=== PATIENT | female | born 1965 | race Caucasian/White ===

== ENCOUNTER 2016-10-26 16:29 | Emergency (ER) | payer MEDICARE ==
[2016-10-26 17:25] LABS: Basophils % (Auto) 0.9 % (0.0-1.8); Eosinophils % (Auto) 2.3 % (0.0-4.3); Hematocrit 42.9 % (30.3-42.9); Hemoglobin 13.6 gm/dl (10.1-14.3); Mean Corpuscular HGB Conc 32 % (30-34); Mean Corpuscular Hemoglobin 29 pg (28-32); Mean Corpuscular Volume 91 fl (79-97); Red Blood Count 4.73 M/mm3 (3.65-5.03); Red Cell Distribution Width 14.2 % (13.2-15.2); White Blood Count 5.7 K/mm3 (4.5-11.0)
[2016-10-26 17:27] LABS: Platelet Count 130 K/mm3 (140-440)
[2016-10-26 17:32] LABS: Anion Gap 17 mmol/L; Blood Urea Nitrogen 6 mg/dL (7-17); Calcium 9.7 mg/dL (8.4-10.2); Carbon Dioxide 26 mmol/L (22-30); Chloride 103.7 mmol/L (98-107); Glucose 88 mg/dL (65-100); Potassium 4.1 mmol/L (3.6-5.0); Sodium 143 mmol/L (137-145)
--- NOTE | 2016-10-26 18:57 | Emergency Department Report ---
ED Psych HPI - General Chief Complaint: Psych Stated Complaint: EVALUATION Time Seen by Provider: 10/26/16 17:33 Source: patient Mode of arrival: Ambulatory Limitations: No Limitations - History of Present Illness Initial Comments: 51-year-old female with a past smoker history of bipolar, GERD, migraines, and hypertension presents to the hospital complains of suicidal thoughts on and off for quite some time. Symptoms exacerbated after argument with her . Patient does hear voices on occasion from her ex- who committed suicide. Patient's last suicide attempt with as a teenager via overdose. Plan is to overdose this time as well. Patient expressed these thoughts to her primary care doctor provider Valeria ROLDAN at [facility]. Patient was sent here via police escort on a 1013. As per patient awake patient expressed to the provider that she was on a harm herself and her . Patient has been noncompliant with his psychiatric medication for 3 weeks. She takes something for anxiety, something for depression, can only recall that Seroquel is one of the medications. Patient takes lisinopril 40 mg for her blood pressure. No physical complaints reported. - Related Data Home Medications Medication Instructions Recorded Confirmed Last Taken Aspirin [Aspirin BABY CHEW TAB] 81 mg PO QDAY 10/14/12 10/14/12 10/13/12 Celecoxib [celeBREX] 200 mg PO PRN PRN 10/14/12 10/14/12 Unknown Ibuprofen [Motrin 800 MG tab] 800 mg PO 10/14/12 10/14/12 10/13/12 Lisinopril 20 mg PO 10/14/12 10/14/12 10/13/12 Nitroglycerin [Nitrostat] 0.4 mg SL PRN PRN 10/14/12 10/14/12 10/12/12 Omeprazole [Prilosec] 40 mg PO PRN PRN 10/14/12 10/14/12 Unknown Pantoprazole [Protonix INJ] 40 mg IV QDAY 10/14/12 10/14/12 10/13/12 Propranolol LA [Inderal LA] 60 mg PO PRN 10/14/12 10/14/12 Unknown Sumatriptan Succ/Naproxen Sod 85 - 500 mg PO PRN 10/14/12 10/14/12 Unknown [Treximet 85-500 mg Tablet] Vilazodone Hydrochloride [Viibryd] 40 mg PO QDAY 10/14/12 10/14/12 10/13/12 lamoTRIgine [LaMICtal] 200 mg PO PRN PRN 10/14/12 10/14/12 Unknown Allergies Allergy/AdvReac Type Severity Reaction Status Date / Time No Known Allergies Allergy Verified 10/26/16 16:51 ED Review of Systems ROS: Stated complaint: EVALUATION Other details as noted in HPI Comment: All other systems reviewed and negative Other: Constitutional: No fevers chills Eyes: No eye pain visual changes ENT: No ear pain or throat pain Neck: Denies pain Respiratory: Denies cough wheezing shortness of breath Cardiovascular: Denies chest pain, palpitations, syncope GI: Denies abdominal pain, nausea, vomiting, diarrhea : Denies dysuria Musculoskeletal: Denies back pain Skin: Denies rash, lesions, erythema Neurologic: Denies headache, numbness, weakness Psychiatric: as per hpi ED Past Medical Hx - Past Medical History Hx Hypertension: Yes Hx GERD: Yes Hx Arthritis: Yes Hx Headaches / Migraines: Yes (hx migraines) - Social History Smoking Status: Never Smoker Substance Use Type: None - Medications Home Medications: Home Medications Medication Instructions Recorded Confirmed Last Taken Type Aspirin [Aspirin BABY CHEW TAB] 81 mg PO QDAY 10/14/12 10/14/12 10/13/12 History Celecoxib [celeBREX] 200 mg PO PRN PRN 10/14/12 10/14/12 Unknown History Ibuprofen [Motrin 800 MG tab] 800 mg PO 10/14/12 10/14/12 10/13/12 History Lisinopril 20 mg PO 10/14/12 10/14/12 10/13/12 History Nitroglycerin [Nitrostat] 0.4 mg SL PRN PRN 10/14/12 10/14/12 10/12/12 History Omeprazole [Prilosec] 40 mg PO PRN PRN 10/14/12 10/14/12 Unknown History Pantoprazole [Protonix INJ] 40 mg IV QDAY 10/14/12 10/14/12 10/13/12 History Propranolol LA [Inderal LA] 60 mg PO PRN 10/14/12 10/14/12 Unknown History Sumatriptan Succ/Naproxen Sod 85 - 500 mg PO PRN 10/14/12 10/14/12 Unknown History [Treximet 85-500 mg Tablet] Vilazodone Hydrochloride [Viibryd] 40 mg PO QDAY 10/14/12 10/14/12 10/13/12 History lamoTRIgine [LaMICtal] 200 mg PO PRN PRN 10/14/12 10/14/12 Unknown History ED Physical Exam - General Limitations: No Limitations - Other Other exam information: General: No limitations, patient is alert in no acute distress Head exam: Atraumatic, normocephalic Eyes exam: Normal appearance ENT: Moist mucous membrane, normal oropharynx Neck exam: Normal inspection, full range of motion, no meningismus nontender Respiratory exam: Clear to auscultation bilateral, no wheezes, rales, crackles Cardiovascular: Normal rate and rhythm, normal heart sounds Abdomen: Soft, nondistended, and nontender, with normal bowel sounds, no rebound, or guarding Extremity: Full range of motion normal inspection no deformity Back: Normal Inspection, full range of motion, no tenderness Neurologic: Alert, oriented x3, cranial nerves intact, no motor or sensory deficit Psychiatric: normal affect, normal mood Skin: Warm, dry, intact ED Course Vital Signs 10/26/16 10/26/16 16:52 17:28 Temperature 97.4 F L Pulse Rate 62 Respiratory 16 16 Rate Blood Pressure 142/67 O2 Sat by Pulse 99 100 Oximetry ED Medical Decision Making - Lab Data Result diagrams: 10/26/16 16:57 10/26/16 16:57 - Medical Decision Making 1013 in transit form signed. - Differential Diagnosis psychosis, depression, suicidal, homicidal, bipolar Critical Care Time: No Critical care attestation.: If time is entered above; I have spent that time in minutes in the direct care of this critically ill patient, excluding procedure time. ED Disposition Clinical Impression: Bipolar disorder, Suicidal ideation, Homicidal ideation, Psychosis, Medical clearance for psychiatric admission Disposition: [id number] PSY HOSP/PSY UNIT Is pt being admited?: No Condition: Stable Time of Disposition: 18:59 (awaiting acceptance)
[2016-10-26 19:47] LABS: Urine Drugs of Abuse Note Disclamer
[2016-10-26 19:57] LABS: Bacteria,Urine 2+ /HPF (Negative); Bilirubin,Urine NEG (Negative); Blood,Urine SM (Negative); Ketones,Urine NEG (Negative); Leukocyte Esterase,Urine SM (Negative); Mucus,Urine FEW /HPF; Nitrite,Urine NEG (Negative); Protein,Urine <15 mg/dL mg/dL (Negative); Urobilinogen,Urine < 2.0 mg/dL (<2.0)
[2016-10-27 00:02] VITALS: BP 132/60
[2016-10-27] MEDS ORDERED: ZESTRIL PO SCH (10:00)
== END 2016-10-27 00:27 ==
LOC: ED 16:29
DX: R45.851 Suicidal ideations (principal); R45.850 Homicidal ideations; F29 Unspecified psychosis not due to a substance or known physiological condition; F31.9 Bipolar disorder, unspecified; I10 Essential (primary) hypertension; K21.9 Gastro-esophageal reflux disease without esophagitis; M19.90 Unspecified osteoarthritis, unspecified site; G43.909 Migraine, unspecified, not intractable, without status migrainosus; Z79.82 Long term (current) use of aspirin
CPT/HCPCS: 36415; 80048; 80307; 81001; 85025; 99285; G0480; 80320